=== PATIENT | male | born 1975 | race Caucasian/White ===

== ENCOUNTER → 2019-08-27 | Outpatient (CLI) | payer SELFPAY ==
[~2019-08-27] MED LIST: BENTYL10 MG PO; CYCLOBENZAPRINE5 MG PO; MOTRIN800 MG PO; MULTI VITAMINS1 TAB PO; SEPTRA DS 800 M1 TAB PO; VICODIN 500 MG-1 TAB PO; ZANTAC 150150 MG PO
[2019-08-27 10:38] LABS: HEMOGLOBIN 14.3 g/dl (14.0-18.0); MEAN CELL VOLUME 84.8 fl (80.0-94.0); MEAN CORPUSCULAR HGB 27.6 pg (27.0-31.0); MEAN CORPUSCULAR HGB CONC 32.5 g/dl (33.0-37.0); MEAN PLATELET VOLUME 10.5 fl (9.6-12.3); RED BLOOD COUNT 5.19 10*6/uL (4.50-5.90); RED CELL DISTRI WIDTH 13.3 % (0-14.5); WHITE BLOOD COUNT 6.7 10*3/uL (4.8-10.8)
[2019-08-27 11:13] LABS: ALBUMIN 4.4 gm/dl (3.1-4.5); BUN 15 mg/dl (7-24); CHLORIDE 108 mmol/L (98-107); CHOLESTEROL 230 mg/dL (<200); CREATININE 0.98 mg/dL (0.70-1.30); POTASSIUM 3.9 mmol/L (3.5-5.1); SGOT/AST 21 IU/L (3-35); SGPT/ALT 52 U/L (12-78); SODIUM 140 mmol/L (136-145); TOTAL PROTEIN 8.2 gm/dL (6.4-8.2); TRIGLYCERIDES 140 mg/dl (<150); VLDL CHOLESTEROL 28 mg/dL (6-40)
[2019-08-27 11:22] LABS: ALKALINE PHOSPHATASE 73 U/L (45-117); HDL CHOLESTEROL 36 mg/dl (40-60); LDL CHOLESTEROL 166 mg/dL (9-159); THYROID STIM HORMONE (HS) 0.875 uIU/ml (0.358-4.75)
== END | disposition home or self-care (01) ==
LOC: LAB 10:14
PROVIDERS: Family Medicine
DX: Z13.220 Encounter for screening for lipoid disorders (principal); I10 Essential (primary) hypertension; R53.83 Other fatigue; R63.5 Abnormal weight gain

== ENCOUNTER → 2023-05-22 | Outpatient (CLI) | payer MEDICAID ==
[~2023-05-22] MED LIST changes: +CIPRO500 MG PO; +Ondansetron4 MG PO
== END | disposition home or self-care (01) ==
LOC: US 01:59
PROVIDERS: ATTEND Urology
DX: N20.0 Calculus of kidney (principal)